=== PATIENT | male | born 1945 | race Caucasian/White ===

== ENCOUNTER → 2017-05-21 11:03 | Outpatient (POV) | payer MEDICARE, SELFPAY ==
--- NOTE | 2017-05-21 11:36 | XR_ITS ---
XR chest 2V Ordering Physician: Oswald Martinez MD Patient Age: 71 years: Male HISTORY: ITS.REASON: HEMOPTYSIS Hemoptysis. Cough TECHNIQUE: PA and lateral chest July 2015 COMPARISON :PA and lateral chest August 2015. FINDINGS: Multiple old left rib fractures are again noted with coarsening markings here towards the left base & perihilar region similar to the 2016 studies.. With this old left chest trauma there is extensive pleural thickening along posterior aspect of tlower left chest. It is difficult to exclude a superimposed infiltrate suprahilar region but favor these are chronic changes as this certainly appears to be similar to previous 2016 chest films. Most likely reflecting chronic changes. Subtly increased markings right infrahilar region towards right base is similar to the old chest film as well from July 2015 CXR. Favor chronic changes but difficult to exclude early infiltrate. Symptoms progress consider follow-up or CT chest. In this complex chest film There has been prior median sternotomy. ICD device is present. No CHF. Upper Normal heart size. Normal pulmonary vascularity Tracheostomy tube is noted and more evident -------IMPRESSION:. Chronic pleuroparenchymal changes lower lobes left more so than right , with moderate pleural thickening along the posterior hemithorax on the left and multiple old left-sided ribfractures. No no definitive change since previous 2016 CXR
== END ==
PROVIDERS: PCP Nurse Practitioner Family; Visit Provider Internal Medicine
DX: R04.2 Hemoptysis (principal)
CPT/HCPCS: 71046

== ENCOUNTER → 2017-11-20 11:27 | Outpatient (POV) | payer MEDICARE, SELFPAY | PROVIDERS: PCP Nurse Practitioner Family; Visit Provider Internal Medicine | DX: Z00.00 Encounter for general adult medical examination without abnormal findings (principal) ==

== ENCOUNTER → 2018-03-26 12:59 | Outpatient (POV) | payer MEDICARE, SELFPAY | PROVIDERS: Visit Provider Internal Medicine | DX: Z00.00 Encounter for general adult medical examination without abnormal findings (principal) ==

== ENCOUNTER → 2018-09-24 11:21 | Outpatient (POV) | payer MEDICARE, SELFPAY | PROVIDERS: Visit Provider Internal Medicine | DX: Z00.00 Encounter for general adult medical examination without abnormal findings (principal) ==

== ENCOUNTER → 2020-07-08 11:07 | Outpatient (CLI) | payer MEDICARE, SELFPAY ==
--- NOTE | 2020-07-08 11:51 | XR_ITS ---
PROCEDURE: XR FOOT WT BEARING LT 3V CLINICAL INDICATION: diabetic Pain COMPARISON: No exams were available for comparison FINDINGS: No fracture or dislocation. No lytic or blastic change. There is normal mineralization. The joint spaces are well-preserved. No significant degenerative/arthritic changes. No erosive changes evident. Other findings:There is diffuse vascular calcification. IMPRESSION: No acute findings. Dictated by: Sharad Sheth MD 07/08/2020 17:45 Sharad Sheth MD in [facility] 07/08/2020 17:45
--- NOTE | 2020-07-08 11:51 | XR_ITS ---
PROCEDURE: XR FOOT WT BEARING RT 3V CLINICAL INDICATION: cellulitis Pain COMPARISON: No exams were available for comparison FINDINGS: There is diffuse osteopenia and vascular calcification noted. No acute fracture or dislocation. No lytic or blastic change. Other findings:None. IMPRESSION: Diffuse osteopenia Dictated by: Sharad Sheth MD 07/08/2020 17:44 Sharad Sheth MD in [facility] 07/08/2020 17:44
[2020-07-08 12:54] LABS: Basophils # 0.1 K/mm3 (0-0.2); Basophils % 0.6 % (0.1-2.0); Eosinophils # 0.2 K/mm3 (0.0-0.4); Eosinophils % 1.8 % (0.1-12.0); Hemoglobin 13.7 g/dL (14.1-18.0); Lymphocytes # 3.8 K/mm3 (0.7-4.5); Lymphocytes % 35.3 % (10-50); Mean Corpuscular HGB Conc 32.6 g/dL (31.8-35.4); Mean Corpuscular Hemoglobin 29.7 pg (27.0-31.2); Mean Corpuscular Volume 91.1 fl (80-94); Mean Platelet Volume 8.3 fl (7.4-10.4); Monocytes # 0.6 K/mm3 (0.1-1.0); Monocytes % 5.2 % (1.7-9.3); Neutrophils # 6.2 K/mm3 (1.8-7.8); Neutrophils % 57.1 % (37.0-80.0); Platelet Count 318 K/mm3 (142-424); Red Blood Count 4.61 M/mm3 (4.60-6.20); Red Cell Distribution Width 14.2 % (11.5-17.5); White Blood Count 10.9 K/mm3 (4.8-10.8)
[2020-07-08 13:23] LABS: Erythrocyte Sedimentation Rate 23 mm/hr (0-20)
[2020-07-08 13:25] LABS: Chloride 105 mmol/L (98-107); Potassium 4.5 mmoL/L (3.5-5.1); Sodium 141 mmol/L (136-145)
[2020-07-08 13:27] LABS: Alanine Aminotransferase 21 U/L (12-78); Alkaline Phosphatase 150 U/L (38-126); Anion Gap 13.5 mEq/L (5-15); Aspartate Amino Transferase 32 U/L (17-59); Bilirubin,Total 0.8 mg/dl (0.2-1.3); Blood Urea Nitrogen 25 mg/dl (9-20); Carbon Dioxide 27 mmol/L (22.0-30.0); Estimated Glomerular Filt Rate 73 ml/min (>60); GFR (African American) 88 ML/MIN (>60)
[2020-07-08 13:28] LABS: Albumin Level 3.8 g/dl (3.5-5.0); Albumin/Globulin Ratio 1.1 (1.1-1.8); Calcium 9.8 mg/dl (8.4-10.2); Globulin 3.4 g/dL (1.3-3.2); Glucose 92 mg/dl (74-100); Total Protein,Serum 7.2 g/dl (6.3-8.2)
[2020-07-08 13:33] LABS: C-Reactive Protein 16.7 mg/L (0-4)
== END ==
PROVIDERS: PCP Nurse Practitioner Family; Visit Provider Podiatrist
DX: L03.90 Cellulitis, unspecified; E11.621 Type 2 diabetes mellitus with foot ulcer; L97.519 Non-pressure chronic ulcer of other part of right foot with unspecified severity; Z79.4 Long term (current) use of insulin; B96.1 Klebsiella pneumoniae [K. pneumoniae] as the cause of diseases classified elsewhere
CPT/HCPCS: 36415; 73630; 80053; 85025; 85651; 86140; 87070; 87077; 87186; 87205

== ENCOUNTER → 2020-07-19 12:57 | Outpatient (CLI) | payer MEDICARE, SELFPAY ==
--- NOTE | 2020-07-19 12:58 | US_ITS ---
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 RCS, RVS Indications Non-healing Ulcer: Right Rest Pain: Bilaterally CAD Risk Factors Hyperlipidemia DiabetesCAD, Pressures/Indices Right Indices Left Indices Brachial 128.00 mmHg Brachial 120.00 mmHg High Thigh 255.00 mmHg High Thigh 255.00 mmHg Calf 255.00 mmHg Calf 255.00 mmHg Ankle(PT) 110.00 mmHg 0.86 Ankle(PT) 141.00 mmHg 1.10 Ankle(DP) 255.00 mmHg Ankle(DP) 255.00 mmHg Digit 142.00 mmHg 1.11 Digit 129.00 mmHg 1.01 Findings RT SALVADOR=1.1 LT SALVADOR=1.10 RT TPI=0.86 LT TPI=1.01 Right 2nd digit utilezed for toe pressure due to great toe wound Conclusion RT SALVADOR=1.1 LT SALVADOR=1.10 RT TPI=0.86 LT TPI=1.01 No evidence significant arterial disease throughout the right and left lower extremities as evidenced by normal resting PVR waveforms and normal resting indices. Electronically signed by : Sharad Sheth MD 07/26/2020 16:16:21
== END ==
PROVIDERS: PCP Nurse Practitioner Family; Visit Provider Podiatrist
DX: R09.89 Other specified symptoms and signs involving the circulatory and respiratory systems (principal)
CPT/HCPCS: 93923

== ENCOUNTER → 2020-07-29 12:52 | Outpatient (CLI) | payer MEDICARE, SELFPAY ==
[2020-07-29 13:28] LABS: Basophils # 0.1 K/mm3 (0-0.2); Basophils % 0.8 % (0.1-2.0); Eosinophils # 0.2 K/mm3 (0.0-0.4); Eosinophils % 2.6 % (0.1-12.0); Hematocrit 42.3 % (42.0-52.0); Hemoglobin 13.9 g/dL (14.1-18.0); Lymphocytes # 3.9 K/mm3 (0.7-4.5); Lymphocytes % 43.7 % (10-50); Mean Corpuscular HGB Conc 32.8 g/dL (31.8-35.4); Mean Corpuscular Hemoglobin 30.1 pg (27.0-31.2); Mean Corpuscular Volume 91.6 fl (80-94); Monocytes # 0.6 K/mm3 (0.1-1.0); Monocytes % 6.5 % (1.7-9.3); Neutrophils # 4.2 K/mm3 (1.8-7.8); Neutrophils % 46.4 % (37.0-80.0); Platelet Count 288 K/mm3 (142-424); Red Blood Count 4.61 M/mm3 (4.60-6.20); Red Cell Distribution Width 14.7 % (11.5-17.5)
[2020-07-29 14:12] LABS: Erythrocyte Sedimentation Rate 21 mm/hr (0-20)
[2020-07-29 14:14] LABS: Alanine Aminotransferase 35 U/L (12-78); Albumin Level 3.9 g/dl (3.5-5.0); Albumin/Globulin Ratio 1.2 (1.1-1.8); Alkaline Phosphatase 123 U/L (38-126); Anion Gap 13.6 mEq/L (5-15); Aspartate Amino Transferase 42 U/L (17-59); Bilirubin,Total 0.5 mg/dl (0.2-1.3); Blood Urea Nitrogen 20 mg/dl (9-20); Calcium 9.3 mg/dl (8.4-10.2); Carbon Dioxide 28 mmol/L (22.0-30.0); Chloride 102 mmol/L (98-107); Estimated Glomerular Filt Rate 73 ml/min (>60); GFR (African American) 88 ML/MIN (>60); Globulin 3.2 g/dL (1.3-3.2); Glucose 101 mg/dl (74-100); Potassium 4.6 mmoL/L (3.5-5.1); Sodium 139 mmol/L (136-145); Total Protein,Serum 7.1 g/dl (6.3-8.2)
[2020-07-29 14:20] LABS: C-Reactive Protein 3.6 mg/L (0-4)
[2020-07-29 19:55] LABS: Free Thyroxine Index 3.3 ug/dL (5.93-13.13); Triiodothryronine (T3) Uptake 37 % (23.5-40.5)
[2020-07-29 20:09] LABS: Thyroid Stimulating Hormone 3.67 uIU/mL (0.465-4.68)
== END ==
PROVIDERS: Internal Medicine Cardiovascular Disease; Visit Provider Nurse Practitioner
DX: Z51.89 Encounter for other specified aftercare (principal); I25.10 Atherosclerotic heart disease of native coronary artery without angina pectoris; E11.9 Type 2 diabetes mellitus without complications; L03.115 Cellulitis of right lower limb
CPT/HCPCS: 36415; 80053; 84436; 84443; 84479; 85025; 85651; 86140

== ENCOUNTER → 2020-08-05 11:48 | Outpatient (CLI) | payer MEDICARE, SELFPAY ==
[2020-08-05 13:39] LABS: Free Thyroxine Index 3.8 ug/dL (5.93-13.13); Triiodothryronine (T3) Uptake 38 % (23.5-40.5)
[2020-08-05 13:53] LABS: Thyroid Stimulating Hormone 4.09 uIU/mL (0.465-4.68)
== END ==
PROVIDERS: Visit Provider Internal Medicine Cardiovascular Disease
DX: E11.9 Type 2 diabetes mellitus without complications (principal); Z79.4 Long term (current) use of insulin; Z79.899 Other long term (current) drug therapy
CPT/HCPCS: 36415; 84436; 84443; 84479

== ENCOUNTER → 2020-08-11 07:12 | Outpatient (CLI) | payer MEDICARE, SELFPAY ==
--- NOTE | 2020-08-11 07:13 | CT_ITS ---
Procedure: CT ANGIO ABDOMEN/FEMORAL CLINICAL HISTORY: PAD, nonhealing ulcers of RLE, abnormal SALVADOR COMPARISON: No exams were available for comparison TECHNIQUE: IV Contrast: 100ml Isovue 370 Axial images obtained with sagittal and coronal reformats. All CT scans at the facility use one or more dose reduction, viz: automated exposure control, ma/kV adjustment per patient size (including targeted exams where dose is matched to indication, i.e. head), or iterative reconstruction technique. FINDINGS: Abdominal aorta: Evaluation begins at the level of the renal arteries. The left renal artery is not completely included on the exam. The abdominal aorta and iliac vessels show no evidence of stenosis. Scattered atheromatous plaque is present. Diffuse calcific plaque is present involving the common femoral, femoral, and popliteal arteries with no significant stenosis to the level of the knees. Diffuse atheromatous plaque involves the runoff vessels below the knees on both sides. There is occlusion of the proximal aspect of the right posterior tibial artery. Segmental areas of high-grade stenosis involves the anterior tibial and peroneal arteries. These are difficult to evaluate due to their small size and wall calcification. The anterior tibial artery is patent to the ankle. Segmental areas of occlusive changes are present distal to this region the peroneal artery is patent to the ankle but appears occluded distal to the ankle. Trifurcation vessels are patent proximally on the left with segmental areas of high-grade stenosis involving the distal vessels with scattered occlusive changes of the posterior tibial artery on the left. The anterior tibial and peroneal artery are patent to the ankle on the left. Nonvascular Constipation. Artifact from right hip replacement and right femur intramedullary andrew. There is an old right inferior pubic ramus fracture. Osteoarthritic changes are present at the knee ankle and foot. There is generalized osteopenia IMPRESSION: 1. Diffuse atheromatous changes of the aorta, iliac vessels and lower extremity vessels with diffuse calcification. 2. No major occlusive change of the aorta, iliacs, femoral, or popliteal arteries. 3. Diffuse atheromatous changes of the lower extremity runoff below the knee with diffuse small vessel disease and segmental areas of occlusion with bilateral posterior tibial artery occlusion. Dictated by: Sharad Sheth MD 08/13/2020 08:58 Sharad Sheth MD in [facility] 08/13/2020 08:58
--- NOTE | 2020-08-11 07:13 | CA_ITS ---
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: Makayla Heard RVT Laterality: Bilateral Study Quality: Good Indications: bilateral carotid bruits,PT HAS TRACH Risk Factors Hypertension: Diabetes Doppler Spectral Velocity Analysis ECA (R) 99.50/9.00 cm/s ECA (L) 63.60/9.60 cm/s dICA (R) 95.00/23.90 cm/s dICA (L) 79.60/27.60 cm/s Keith (R) 92.00/26.20 cm/s Keith (L) 84.10/23.10 cm/s pICA (R) 64.30/17.20 cm/s pICA (L) 62.90/16.10 cm/s dCCA (R) 64.20/13.50 cm/s dCCA (L) 59.10/12.00 cm/s pCCA (R) 54.60/9.00 cm/s pCCA (L) 71.10/10.50 cm/s Vert (R) 28.40/8.20 cm/s Vert (L) 32.70/8.30 cm/s ICA/CCA 1.48 ICA/CCA 1.42 Findings Study suggests 20-49% stenosis of the right internal cartoid artery. Study suggests less than 20% stenosis of the left internal cartoid artery. Antegrade flow seen bilateral vertebral arteries. Conclusion Study suggests 20-49% stenosis of the right internal cartoid artery. Study suggests less than 20% stenosis of the left internal cartoid artery. Antegrade flow seen bilateral vertebral arteries. Electronically signed by : Sharad Sheth MD 08/11/2020 16:36:54
--- NOTE | 2020-08-11 07:13 | CA_ITS ---
APPROVED REPORT EXAM: Comprehensive 2D, Doppler, and color-flow Echocardiogram Ground Instructor Basic: Makayla Heard RVT Ht: 5 ft 6 in Wt: 162lbs BSA: 1.83 BP: 113/40 mmHg Indications: SOA,CAD,CABG,HLD,DM,SOA,TRACH. 2D Dimensions LVOT 1.79 cm (M/F) 1.5-2.5 LA Volume 47.40 mL LA Volume Index 25.790619 mL/m2 (M/F) 16-34 M-Mode Dimensions RVDd 2.62 cm (0.9-2.6) LA Diam 4.69 cm (1.9-4.0) LVDd 4.60 cm (3.5-5.7) Ao Diam 3.01 cm (2.0-3.7) LVDs 3.08 cm (3.5-5.7) IVSd 0.46 cm (0.6-1.1) PWd 0.72 cm (0.6-1.1) EF (Teich) 61.70% FS 33.00% EDV (Teich) 97.30 mL ESV (Teich) 37.30 mL LV Diastology E Decel Time 150.00 (160-240 msec) E/A Ratio 1.1 MED E' 5.80 (< 7 cm/sec) E'/MED E' Ratio 14.14 (>14) LAT E' 7.80 (<10 cm/sec) E/LAT E' Ratio 10.51 (>14) Mitral Valve MV E Max Edwin. 82.00 (40-130 cm/s) MV A Velocity 78.00 (40-130 cm/s) E/A Ratio 1.06 MV Decel. Time 150.00 (160-240 ms) MV PHT 44.00 ms Pulmonary Valve PV Peak Velocity 55.00 (50-150 cm/s) Tricuspid Valve TR P. Velocity 272.00 cm/s RAP Estimate 10.00 mmHg RVSP 39.70 mmHg Left Ventricle Technically difficult study because of the patient factors and poor acoustic windows. Left atrium is mildly enlarged, left ventricle is mildly dilated, there is reduced left ventricular systolic function, visually estimated ejection fraction approximately 35% there is marked hypokinesis involving the intraventricular septum, anterior, anterior apical wall. There is abnormal septal motion. Diastolic parameters are inconclusive. Right Ventricle Right atrium and right ventricle are mildly enlarged with normal contractility, there is an AICD lead seen in the right ventricle. Aortic Valve Aortic valve is thickened and calcified without Doppler evidence of aortic stenosis or aortic insufficiency. Mitral Valve Mitral valve leaflets are minimally thickened, there is mild mitral regurgitation. Tricuspid Valve Tricuspid valve grossly normal, there is mild tricuspid regurgitation, tricuspid regurgitation jet velocity is inadequate for calculation of the right ventricular systolic pressure. Pulmonic Valve Pulmonic valve is poorly visualized. Great Vessels Aortic root is normal size. Pericardium No significant pericardial effusion noted. Conclusion 1. Biatrial enlargement, dilated left ventricle, severely recessed ventricular systolic function, visually estimated ejection fraction 35% with multiple segmental wall motion abnormality described above, diastolic parameters are inconclusive. 2. Mildly enlarged right ventricle with normal contractility. 3. Thickened and calcified aortic valve without Doppler evidence of aortic stenosis or aortic insufficiency. 4. Mild mitral and tricuspid regurgitation. 5. No significant pericardial effusion noted. Electronically signed by : Erik Steele, 08/12/2020 14:58:51
[2020-08-11 09:31] LABS: Blood Urea Nitrogen 20 mg/dl (9-20); Estimated Glomerular Filt Rate 73 ml/min (>60); GFR (African American) 88 ML/MIN (>60)
== END ==
PROVIDERS: PCP Nurse Practitioner Family; Visit Provider Internal Medicine Cardiovascular Disease
DX: R06.00 Dyspnea, unspecified; R09.89 Other specified symptoms and signs involving the circulatory and respiratory systems; E11.621 Type 2 diabetes mellitus with foot ulcer; L97.919 Non-pressure chronic ulcer of unspecified part of right lower leg with unspecified severity; I25.810 Atherosclerosis of coronary artery bypass graft(s) without angina pectoris; I70.234 Atherosclerosis of native arteries of right leg with ulceration of heel and midfoot; I70.269 Atherosclerosis of native arteries of extremities with gangrene, unspecified extremity; M79.661 Pain in right lower leg; M79.662 Pain in left lower leg; R68.89 Other general symptoms and signs; Z95.1 Presence of aortocoronary bypass graft; R94.31 Abnormal electrocardiogram [ECG] [EKG]; Z79.4 Long term (current) use of insulin; Z72.0 Tobacco use
CPT/HCPCS: 36415; 75635; 82565; 84520; 93306; 93880; Q9967

== ENCOUNTER → 2020-08-12 12:09 | Outpatient (CLI) | payer MEDICARE, SELFPAY ==
--- NOTE | 2020-08-12 12:13 | XR_ITS ---
PROCEDURE: XR CHEST 2V CLINICAL HISTORY: dyspnea COMPARISON: CT [facility]WO CT CHEST W/O CONTRAST from 07/09/2013 CR CXR CHEST(2 VIEWS-NOT PORTABLE) from 04/11/2015 CR CXR CHEST(2 VIEWS-NOT PORTABLE) from 09/03/2015 CR CXR1 CHEST-PORTABLE from 12/02/2015 CR CXR1 CHEST-PORTABLE from 12/02/2015 CR CXR2V XR chest 2V from 05/21/[address] ANGIO ABDOMEN/FEMORAL from 08/11/2020 FINDINGS: Prior CABG with dual chamber pacemaker present. Tracheostomy tube is present. Chronic increased density is present in the left mid and lower lung zone. There are old left-sided rib fractures with callus formation. The right lung is clear. Chronic pleural thickening noted along the left posterior hemithorax similar to the previous exam and may be related to chronic loculated effusion with atelectatic change as seen on an older CT scan of 07/09/2013. No acute bony abnormalities. IMPRESSION: Chronic changes as described above. No change with no acute finding. Dictated by: Sharad Sheth MD 08/12/2020 14:19 Sharad Sheth MD in [place] 08/12/2020 14:19
== END ==
PROVIDERS: PCP Nurse Practitioner Family; Visit Provider Internal Medicine Cardiovascular Disease
DX: I25.810 Atherosclerosis of coronary artery bypass graft(s) without angina pectoris (principal); R06.00 Dyspnea, unspecified; Z95.1 Presence of aortocoronary bypass graft
CPT/HCPCS: 71046

== ENCOUNTER → 2020-08-19 15:54 | Outpatient (CLI) | payer MEDICARE, SELFPAY ==
[2020-08-19 16:50] LABS: Basophils # 0.1 K/mm3 (0-0.2); Basophils % 0.9 % (0.1-2.0); Eosinophils # 0.2 K/mm3 (0.0-0.4); Eosinophils % 2.3 % (0.1-12.0); Hematocrit 43.5 % (42.0-52.0); Hemoglobin 14.4 g/dL (14.1-18.0); Lymphocytes # 4.2 K/mm3 (0.7-4.5); Lymphocytes % 43.1 % (10-50); Mean Corpuscular HGB Conc 33.1 g/dL (31.8-35.4); Mean Corpuscular Hemoglobin 30.3 pg (27.0-31.2); Mean Corpuscular Volume 91.6 fl (80-94); Mean Platelet Volume 7.9 fl (7.4-10.4); Monocytes # 0.6 K/mm3 (0.1-1.0); Monocytes % 6.6 % (1.7-9.3); Neutrophils # 4.6 K/mm3 (1.8-7.8); Neutrophils % 47.1 % (37.0-80.0); Platelet Count 261 K/mm3 (142-424); Red Blood Count 4.75 M/mm3 (4.60-6.20); White Blood Count 9.7 K/mm3 (4.8-10.8)
[2020-08-19 17:12] LABS: Chloride 103 mmol/L (98-107)
[2020-08-19 17:13] LABS: Potassium 4.6 mmoL/L (3.5-5.1); Sodium 142 mmol/L (136-145)
[2020-08-19 17:15] LABS: Alanine Aminotransferase 27 U/L (12-78); Alkaline Phosphatase 139 U/L (38-126); Anion Gap 16.6 mEq/L (5-15); Aspartate Amino Transferase 34 U/L (17-59); Bilirubin,Total 0.7 mg/dl (0.2-1.3); Blood Urea Nitrogen 26 mg/dl (9-20); Carbon Dioxide 27 mmol/L (22.0-30.0); Estimated Glomerular Filt Rate 73 ml/min (>60); GFR (African American) 88 ML/MIN (>60)
[2020-08-19 17:16] LABS: Albumin Level 4.1 g/dl (3.5-5.0); Albumin/Globulin Ratio 1.2 (1.1-1.8); Calcium 9.7 mg/dl (8.4-10.2); Globulin 3.3 g/dL (1.3-3.2); Glucose 90 mg/dl (74-100); Total Protein,Serum 7.4 g/dl (6.3-8.2)
[2020-08-19 17:21] LABS: C-Reactive Protein 3.6 mg/L (0-4)
[2020-08-19 17:25] LABS: Erythrocyte Sedimentation Rate 19 mm/hr (0-20)
== END ==
PROVIDERS: Visit Provider Podiatrist
DX: Z51.89 Encounter for other specified aftercare (principal); I42.9 Cardiomyopathy, unspecified
CPT/HCPCS: 36415; 80053; 85025; 85651; 86140

== ENCOUNTER → 2020-09-24 12:58 | Outpatient (CLI) | payer MEDICARE, SELFPAY ==
--- NOTE | 2020-09-24 13:07 | XR_ITS ---
PROCEDURE: XR FOOT WT BEARING RT 3V CLINICAL INDICATION: ulcers Pain and ulcers COMPARISON: CR XR FOOT WT BEARING LT 3V from 07/08/2020 CR XR FOOT WT BEARING RT 3V from 07/08/2020 FINDINGS: Diffuse osteopenia which appears worse compared to the previous exam but could in part be related to radiographic technique. Diffuse vascular calcification noted. No obvious fracture or dislocation. No obvious lytic change The joint spaces are well-preserved. No significant degenerative/arthritic changes. No erosive changes evident. Other findings:None. IMPRESSION: Diffuse osteopenia and vascular calcification with no other significant anomalies identified Dictated by: Sharad Sheth MD 09/24/2020 13:56 Sharad Sheth MD in [facility] 09/24/2020 13:56
== END ==
PROVIDERS: PCP Family Medicine; Visit Provider Podiatrist
DX: E08.621 Diabetes mellitus due to underlying condition with foot ulcer (principal); E11.621 Type 2 diabetes mellitus with foot ulcer; L97.413 Non-pressure chronic ulcer of right heel and midfoot with necrosis of muscle; L97.513 Non-pressure chronic ulcer of other part of right foot with necrosis of muscle; L97.519 Non-pressure chronic ulcer of other part of right foot with unspecified severity
CPT/HCPCS: 73630

== ENCOUNTER 2020-10-19 13:00 | Outpatient (RCR) | payer MEDICARE, SELFPAY ==
--- NOTE | 2020-10-05 16:48 | HMH.PTOPWND ---
Rehab Outpt Wound Evaluation Rehab OP Wound Evaluation Start: 10/05/20 16:31 Freq: Status: Active Protocol: Document 10/05/20 16:31 [email or web address] (Rec: 10/05/20 16:48 [email or web address] [id number]) Electronically Signed By Rob Hampton, PAULY 10/05/20 16:31 Subjective/History History History This is the initial Wound clinic evaluation for Yolande Ma. Pt is a 75 y/o male referred to PT for wound care on non-healing R foot wounds. Pt has tracheotomy and Hx was given by . Spouse reports wounds began in December 2019. Spouse states her had hip surgery and was at rehab facility. She reports they ran his foot into a door and that was the original wound, after that ppatient was to not very ambulatory and developed other wounds on foot. Pt has had vascular studies, possibly showing full occlusion below knee. Wound Eval Wound Right Distal Great Toe Wound Type Diabetic Foot Ulcer Wound Length (cm) 2.0 Wound Width (cm) 1.0 Wound Bed Appearance Beefy Red,Dusky Red Percentage Granulated (%) 50 Percentage of Eschar (Yellow) (%) 50 Wound Margins Description Indistinct Surrounding Tissue Appearance Purple Surrounding Tissue Temperature Warm Drainage Description None Drainage Amount None Drainage Odor No Odor Dressing Status Dry & Intact Primary Dressing Silver Dressing Comment tegederm ag mesh Wound Secondary Dressing Type Biosynthetic Dressing Comment purocol Wound Debridement Method Sharps Wound Debridement Amount of Tissue Minimal Removed Wound Debridement Result Healthy Tissue Revealed Dressing Change Date 10/05/20 Right Foot Wound Type Diabetic Foot Ulcer Is This a Chronic Wound Yes Wound Length (cm) 4 Wound Width (cm) 2 Wound Depth (cm) 1.5 Wound Bed Appearance Beefy Red,Yellow Percentage Granulated (%) 50 Percentage of Eschar (Yellow) (%) 50 Wound Margins Description Well Defined Drainage Description None Drainage Amou
== END 2020-10-19 13:05 | disposition home or self-care (01) ==
LOC: PT 13:00
PROVIDERS: PCP Family Medicine; Visit Provider Podiatrist
DX: E11.621 Type 2 diabetes mellitus with foot ulcer (principal); L97.513 Non-pressure chronic ulcer of other part of right foot with necrosis of muscle
CPT/HCPCS: 97162; 97597; 97598

== ENCOUNTER 2020-10-21 11:51 | Emergency (ER) | payer MEDICARE, SELFPAY ==
[2020-10-21] VITALS (13 sets, daily range): BP systolic 89–115; BP diastolic 46–62; PULSE 58–91; RESP 16–32; TEMP 36.6; O2SAT 96–100; BMI 24.4
--- NOTE | 2020-10-21 11:54 | HMH.EDFALL ---
ED Disposition Clinical Impression: Aspiration pneumonitis Humerus surgical neck fracture Qualifiers: Encounter type: initial encounter Fracture type: closed Fracture alignment: displaced Laterality: right Disposition: Xfer Short-Term Hosp Condition on Discharge: Good Referrals: Mariola Duarte [Primary Care Provider] - Forms: Transfer Record - ED - Critical Care Critical Care Time: No Attestation: On , the high probability of a clinically significant, sudden or life threatening deterioration of the following system(s) required my full and direct attention, intervention and personal management. The time I documented below is in addition to time spent performing reported procedures but includes the following listed in this critical care notation. Medical Decision Making - Medical Records Medical records reviewed: Yes: I reviewed the patient's medical records. - Chace Inquiry Pt receiving controlled substance: No Vital Signs: 10/21/20 11:52 10/21/20 12:10 10/21/20 12:41 Temperature 98 F Temperature Source Oral Pulse Rate 61 60 Pulse Rate [Radial] 91 H Respiratory Rate 16 30 H 32 H Blood Pressure 98/51 L 93/46 L Blood Pressure [Right Arm] 89/48 L Blood Pressure Mean 66 63 Blood Pressure Mean [Right Arm] 61 Blood Pressure Position [Right Arm] Sitting 02 Sat by Pulse Oximetry 98 97 96 Oxygen Delivery Method Room Air Non-Rebreather Non-Rebreather Oxygen Flow Rate (LPM) 10 10 10/21/20 13:01 Temperature Temperature Source Pulse Rate 58 L Pulse Rate [Radial] Respiratory Rate 26 H Blood Pressure 115/55 L Blood Pressure [Right Arm] Blood Pressure Mean 70 Blood Pressure Mean [Right Arm] Blood Pressure Position [Right Arm] 02 Sat by Pulse Oximetry 96 Oxygen Delivery Method Oxygen Flow Rate (LPM) 10 - Lab Data Lab Results 10/21/20 12:07: WBC 12.9 H, RBC 4.51 L, Hgb 13.0 L, Hct 40.1 L, MCV 88.8, MCH 28.8, MCHC 32.4, RDW 13.4, Plt Count 203, MPV 7.9, Neut % (Auto) 72.7, Lymph % (Auto) 20.4, [place] % (Auto) 5.5, Eos % (Auto) 1.2, Baso % (Auto) 0.3, Neut # (Auto) 9.3 H, Lymph # (Auto) 2.6, [place] # (Auto) 0.7, Eos # (Auto) 0.2, Baso # (Auto) 0.0 10/21/20 12:07: Sodium 136, Potassium 4.3, Chloride 100, Carbon Dioxide 27, Anion Gap 13.3, BUN 34 H, Creatinine 1.40 H, Estimated Creat Clear 53, Estimated GFR 49 L, Est GFR ( Amer) 60, Glucose 139 H, Calcium 8.6, Total Bilirubin 0.8, AST 41, ALT 35, Alkaline Phosphatase 153 H, Total Protein 6.8, Albumin 3.6, Globulin 3.2, Albumin/Globulin Ratio 1.1 Result diagrams: 10/21/20 12:07 10/21/20 12:07 Orders (Tests/Meds): ED MEDICATIONS Discontinued Medications Generic Name Dose Route Start Last Admin Trade Name Freq PRN Reason Stop Dose Admin Morphine Sulfate 2 mg 10/21/20 11:59 10/21/20 12:15 Morphine 2mg/Ml Syringe IV 10/21/20 12:00 2 mg ONCE ONE Administration Morphine Sulfate 2 mg 10/21/20 14:36 10/21/20 14:39 Morphine 2mg/Ml Syringe IV 10/21/20 14:37 2 mg ONCE ONE Administration Ondansetron HCl 4 mg 10/21/20 11:59 10/21/20 12:15 Ondansetron 4mg/2ml Vial IV 10/21/20 12:00 4 mg ONCE ONE Administration Ondansetron HCl 4 mg 10/21/20 14:35 10/21/20 14:39 Ondansetron 4mg/2ml Vial IV 10/21/20 14:36 4 mg ONCE ONE Administration - Radiology Data #1 Image(s): Chest, Humerus Preliminary Findings: Abnormal Acute displaced fracture of the proximal humerus, right lower lobe atelectasis versus consolidation consistent with history of aspiration and possible pneumonitis. - CT Data CT Scan: Head Time Received: 14:[address] Reviewed: Yes: I have viewed the radiologist's interpretation Preliminary Findings: Normal/NAD Findings Narrative: No acute fracture of the face and no acute intracranial abnormality Medical Decision Narrative: 75-year-old male who presents after mechanical fall at home with a history of traumatic brain injury and chronic trach. Afterwards h
--- NOTE | 2020-10-21 11:56 | CT_ITS ---
PROCEDURE: CT HEAD/BRAIN WO CON CLINICAL INDICATION: moderate head trauma COMPARISON: CT HDWO CT HEAD W/O CONTRAST from 10/23/[address] HEAD W/O CONTRAST from 04/30/2015 TECHNIQUE: Axial images obtained. All CT scans at the facility use one or more dose reduction, viz: automated exposure control, ma/kV adjustment per patient size (including targeted exams where dose is matched to indication, i.e. head), or iterative reconstruction technique. FINDINGS: No midline shift, mass effect, intracranial hemorrhage, hydrocephalus, or extra-axial fluid collection is evident. There is generalized atrophy with hypoattenuation of the periventricular white matter consistent with microangiopathic changes. The calvarium has an unremarkable appearance. No mastoid effusion. There is a partially calcified lesion in the floor the left maxillary sinus measuring 14 x 12 mm. Chronic inflammatory change is considered. IMPRESSION: No acute intracranial finding Dictated by: Sharad Sheth MD 10/21/2020 12:40 Sharad Sheth MD in [place] 10/21/2020 12:40
--- NOTE | 2020-10-21 11:57 | XR_ITS ---
PROCEDURE: XR HUMERUS RT RIGHT SHOULDER. Two views CLINICAL INDICATION: fall with pain COMPARISON: CR XR SHOULDER RT MIN 2V from 10/21/2020 FINDINGS: Displaced fractures present at the humeral neck with 1.6 cm medial displacement of the distal fracture fragment. The humeral head is located. Osteoarthritic changes are present at the acromioclavicular joint. The mid distal aspect of the humerus has an unremarkable appearance. IMPRESSION: Displaced humeral neck fracture Dictated by: Sharad Sheth MD 10/21/2020 13:01 Sharad Sheth MD in [place] 10/21/2020 13:01
--- NOTE | 2020-10-21 11:57 | CT_ITS ---
PROCEDURE: CT FACIAL BONES WO CON CLINICAL HISTORY: facial trauma Right-sided facial bruising COMPARISON: No exams were available for comparison TECHNIQUE: Axial images obtained with sagittal and coronal reformats. All CT scans at the facility use one or more dose reduction, viz: automated exposure control, ma/kV adjustment per patient size (including targeted exams where dose is matched to indication, i.e. head), or iterative reconstruction technique. FINDINGS: No acute fracture or dislocation is evident. There is lobular soft tissue density in the floor of the left maxillary sinus with some coarse calcification noted. This density measures approximately 2 cm AP and 1.2 cm transverse and 1.7 cm cephalad caudad. This may represent a complex mucous retention cysts with chronic inflammation/infection. A fungus infection would be an additional consideration. There is discontinuation of the lateral and inferior aspect of the lateral wall of the left maxillary sinus. This is well-circumscribed. Small retention cyst is present in the sphenoid sinus on the right. There is mild soft tissue swelling in the right zygomatic region. No underlying fracture. IMPRESSION: 1. No acute fracture. 2. Complex nodular opacity floor left maxillary sinus which could be due to a chronic complicated retention cyst, neoplasm, or sequela from fungal infection. There is discontinuity of the left maxillary sinus laterally and inferiorly. Consider follow-up to confirm stability Dictated by: Sharad Sheth MD 10/21/2020 12:54 Sharad Sheth MD in [place] 10/21/2020 12:54
--- NOTE | 2020-10-21 12:00 | XR_ITS ---
PROCEDURE: XR CHEST PORTABLE CLINICAL HISTORY: hypoxia COMPARISON: CT [facility]WO CT CHEST W/O CONTRAST from 07/09/2013 CR CXR1 CHEST-PORTABLE from 12/02/2015 CR CXR2V XR chest 2V from 05/21/2017 CR XR CHEST 2V from 08/12/2020 FINDINGS: There is cardiomegaly with low lung volumes. There has been a prior median sternotomy. Tracheostomy tube is present. Bipolar pacemaker is present from left subclavian approach. There is hypo ventilation with atelectatic changes in the right lower lobe. There is a mildly displaced right humeral neck fracture. IMPRESSION: Cardiomegaly with chronic changes with right basilar atelectasis and right humeral neck fracture Dictated by: Sharad Sheth MD 10/21/2020 13:04 Sharad Sheth MD in [place] 10/21/2020 13:04
[2020-10-21 12:17] LABS: Basophils % 0.3 % (0.1-2.0); Eosinophils # 0.2 K/mm3 (0.0-0.4); Eosinophils % 1.2 % (0.1-12.0); Hematocrit 40.1 % (42.0-52.0); Lymphocytes # 2.6 K/mm3 (0.7-4.5); Lymphocytes % 20.4 % (10-50); Mean Corpuscular HGB Conc 32.4 g/dL (31.8-35.4); Mean Corpuscular Hemoglobin 28.8 pg (27.0-31.2); Mean Corpuscular Volume 88.8 fl (80-94); Mean Platelet Volume 7.9 fl (7.4-10.4); Monocytes # 0.7 K/mm3 (0.1-1.0); Monocytes % 5.5 % (1.7-9.3); Neutrophils # 9.3 K/mm3 (1.8-7.8); Neutrophils % 72.7 % (37.0-80.0); Platelet Count 203 K/mm3 (142-424); Red Blood Count 4.51 M/mm3 (4.60-6.20); Red Cell Distribution Width 13.4 % (11.5-17.5); White Blood Count 12.9 K/mm3 (4.8-10.8)
[2020-10-21 12:41] LABS: Alanine Aminotransferase 35 U/L (12-78); Albumin Level 3.6 g/dl (3.5-5.0); Albumin/Globulin Ratio 1.1 (1.1-1.8); Alkaline Phosphatase 153 U/L (38-126); Anion Gap 13.3 mEq/L (5-15); Aspartate Amino Transferase 41 U/L (17-59); Bilirubin,Total 0.8 mg/dl (0.2-1.3); Blood Urea Nitrogen 34 mg/dl (9-20); Calcium 8.6 mg/dl (8.4-10.2); Carbon Dioxide 27 mmol/L (22.0-30.0); Chloride 100 mmol/L (98-107); Creatinine Clearance Estimated 53 mL/min (50-200); Estimated Glomerular Filt Rate 49 ml/min (>60); GFR (African American) 60 ML/MIN (>60); Globulin 3.2 g/dL (1.3-3.2); Glucose 139 mg/dl (74-100); Potassium 4.3 mmoL/L (3.5-5.1); Sodium 136 mmol/L (136-145); Total Protein,Serum 6.8 g/dl (6.3-8.2)
--- NOTE | 2020-10-21 12:45 | PC.NURSE ---
o2 turned off. sats dropped to 79%. pt placed back on non rebreather at 10L
--- NOTE | 2020-10-21 13:43 | PC.NURSE ---
Dr Trammell returned call
--- NOTE | 2020-10-21 18:00 | PC.NURSE ---
report called to [facility] jf mcdonald rn
== END 2020-10-21 18:04 | disposition short-term general hospital (02) ==
PROVIDERS: Emergency Provider Student in an Organized Health Care Education/Training Program; PCP Family Medicine
DX: J69.0 Pneumonitis due to inhalation of food and vomit (principal); S42.213A Unspecified displaced fracture of surgical neck of unspecified humerus, initial encounter for closed fracture; W01.0XXA Fall on same level from slipping, tripping and stumbling without subsequent striking against object, initial encounter; Y92.019 Unspecified place in single-family (private) house as the place of occurrence of the external cause; Z93.0 Tracheostomy status; E11.9 Type 2 diabetes mellitus without complications; E78.5 Hyperlipidemia, unspecified; I25.2 Old myocardial infarction; J44.9 Chronic obstructive pulmonary disease, unspecified; I48.91 Unspecified atrial fibrillation; Z79.899 Other long term (current) drug therapy
CPT/HCPCS: 70450; 70486; 71045; 73030; 73060; 80053; 85025; 96374; 96375; 96376; 99284; J2405